=== PATIENT | female | born 1980 | race Caucasian/White ===

== ENCOUNTER 2017-06-20 07:15 | Outpatient (CLI) | payer OTHER | END 2017-06-20 07:27 | disposition home or self-care (01) | LOC: LAB 07:15 → EKG 07:15 → EDBD 07:15 → EKG 07:27 | DX: K80.10 Calculus of gallbladder with chronic cholecystitis without obstruction (principal); Z01.810 Encounter for preprocedural cardiovascular examination ==

== ENCOUNTER 2017-06-27 05:12 | Day surgery (SDC) | payer OTHER ==
[2017-06-27] MEDS ORDERED: ZANTAC300 MG PO (12:18)
[2017-06-27] MEDS ORDERED: ULTRACET PO (12:18)
== END 2017-06-27 14:00 | disposition home or self-care (01) ==
LOC: CIR.AMB 05:12
DX: K80.10 Calculus of gallbladder with chronic cholecystitis without obstruction (principal)

== ENCOUNTER → 2019-07-16 | Outpatient (CLI) | payer OTHER ==
[~2019-07-16] MED LIST: ULTRACET PO; ZANTAC300 MG PO
== END | disposition home or self-care (01) ==
LOC: PRENATAL 08:00
DX: O35.3XX0 Maternal care for (suspected) damage to fetus from viral disease in mother, not applicable or unspecified (principal); O34.219 Maternal care for unspecified type scar from previous cesarean delivery; O09.522 Supervision of elderly multigravida, second trimester

== ENCOUNTER → 2019-09-27 | Outpatient (CLI) | payer OTHER | END | disposition home or self-care (01) | LOC: PRENATAL 11:00 | DX: O26.843 Uterine size-date discrepancy, third trimester (principal); O34.211 Maternal care for low transverse scar from previous cesarean delivery; Z36.89 Encounter for other specified antenatal screening ==

== ENCOUNTER 2019-11-21 11:32 | Inpatient (IN) | payer OTHER ==
[~2019-11-21] VITALS: Ht 160 cm; Wt 2.7 kg
[~2019-11-21 11:32] MED LIST changes: +OBSTETRIX ONE1 EACH PO
[2019-11-23] MEDS ORDERED: PRENATAL TABLE1 EACH PO (10:39)
== END 2019-11-26 17:26 | disposition home or self-care (01) | DRG 785 ==
LOC: SURH 11:32 → LDR 11-23 10:28 → OB/GYN 11-23 11:47
PROVIDERS: ADMIT Obstetrics & Gynecology; ATTEND Obstetrics & Gynecology
PROC: 0UB70ZZ Excision of Bilateral Fallopian Tubes, Open Approach (ICD-10-PCS; 2019-11-23)
PROC: 3E033VJ Introduction of Other Hormone into Peripheral Vein, Percutaneous Approach (ICD-10-PCS; 2019-11-23)
PROC: 4A1HXFZ Monitoring of Products of Conception, Cardiac Rhythm, External Approach (ICD-10-PCS; 2019-11-23)
PROC: 10D00Z1 Extraction of Products of Conception, Low, Open Approach (ICD-10-PCS; principal; 2019-11-23 07:15)
DX: O32.1XX0 Maternal care for breech presentation, not applicable or unspecified (principal); O34.211 Maternal care for low transverse scar from previous cesarean delivery; Z30.2 Encounter for sterilization; Z3A.39 39 weeks gestation of pregnancy; Z37.0 Single live birth